=== PATIENT | female | born 1975 | race Caucasian/White ===

== ENCOUNTER 2024-06-28 09:54 | Emergency (ER) | payer OTHER ==
[~2024-06-28] VITALS: Ht 157.4 cm; Wt 81.6 kg
[2024-06-28] MEDS ORDERED: Amoxicillin/Clavulanate Pota 875 MG TAB PO ONE (10:25)
[2024-06-28] MEDS ORDERED: Ondansetron Hydrochloride 4 MG TAB PO ONE (10:25)
[2024-06-28] MEDS ORDERED: AMOX-CLAV 875-1 EACH PO (10:28)
[2024-06-28] MEDS ORDERED: Bactroban Oint22 GM T (10:28)
[2024-06-28] MEDS ORDERED: Ondansetron4 MG PO (10:28)
== END 2024-06-28 10:45 | disposition home or self-care (01) ==
LOC: ED 09:54
DX: L01.00 Impetigo, unspecified (principal); E11.9 Type 2 diabetes mellitus without complications; Z88.5 Allergy status to narcotic agent

== ENCOUNTER 2024-11-13 11:28 | Emergency (ER) | payer BC, OTHER ==
[~2024-11-13] VITALS: Ht 157.4 cm; Wt 90.7 kg
[~2024-11-13 11:28] MED LIST: AMOX-CLAV 875-1 EACH PO; Bactroban Oint22 GM T; Ondansetron4 MG PO
[2024-11-13] MEDS ORDERED: CLEOCIN HCL300 MG PO (12:11)
== END 2024-11-13 12:18 | disposition home or self-care (01) ==
LOC: ED 11:28
DX: N75.0 Cyst of Bartholin's gland (principal); N76.0 Acute vaginitis; Z88.5 Allergy status to narcotic agent; Z91.013 Allergy to seafood; Z79.2 Long term (current) use of antibiotics

== ENCOUNTER 2024-12-31 10:04 | Emergency (ER) | payer BC, OTHER ==
[~2024-12-31] VITALS: Ht 157.4 cm; Wt 96.6 kg
[~2024-12-31 10:04] MED LIST changes: +CLEOCIN HCL300 MG PO
[2024-12-31] MEDS ORDERED: valACYclovir Hydrochloride 500 MG CAP PO ONE (10:20)
[2024-12-31] MEDS ORDERED: VALTREX1000 MG PO (10:21)
[2024-12-31] MEDS ORDERED: Polymyxin B Sulfate/Trimetho 10 ML BOT OPH SCH (12:00)
== END 2024-12-31 10:27 | disposition home or self-care (01) ==
LOC: ED 10:04
DX: B00.1 Herpesviral vesicular dermatitis (principal); H00.012 Hordeolum externum right lower eyelid; Z88.5 Allergy status to narcotic agent; Z91.013 Allergy to seafood; Z88.1 Allergy status to other antibiotic agents

== ENCOUNTER 2025-01-11 05:46 | Emergency (ER) | payer BC, OTHER ==
[~2025-01-11] VITALS: Ht 157.4 cm; Wt 95.3 kg
[~2025-01-11 05:46] MED LIST changes: +VALTREX1000 MG PO
[2025-01-11] MEDS ORDERED: CEPHALEXIN500 M1 PO (06:21)
[2025-01-11] MEDS ORDERED: ERYTHROMYCIN 1 GM TUBE OPH ONE (06:25)
[2025-01-11] MEDS ORDERED: CEPHALEXIN 500 MG CAP PO ONE (06:25)
== END 2025-01-11 06:31 | disposition home or self-care (01) ==
LOC: ED 05:46
DX: H00.014 Hordeolum externum left upper eyelid (principal); E11.9 Type 2 diabetes mellitus without complications; Z79.899 Other long term (current) drug therapy; Z88.1 Allergy status to other antibiotic agents; Z88.5 Allergy status to narcotic agent; Z91.013 Allergy to seafood